=== PATIENT | female | born 1975 | race Hispanic/Latino ===

== ENCOUNTER 2017-06-29 23:36 | Emergency (ER) | payer BC, OTHER, SELFPAY ==
[2017-06-30] MEDS ORDERED: Lorazepam 2 MG/ML VIAL ONE (00:14)
[2017-06-30] MEDS ORDERED: Ondansetron HCl/PF 4 MG/2 ML Vial ONE (00:15)
[2017-06-30 00:55] LABS: #Basophils 0.1 thou/uL (0.0-0.2); #Eosinphils 0.2 thou/uL (0.0-0.7); #Lymphocytes 1.6 thou/uL (1.20-3.40); #Monocytes 0.6 thou/uL (0.11-0.59); #Neutrophils 3.3 thou/uL (1.40-6.50); %Basophils 1.6 % (0.0-1.0); %Eosinophils 2.7 % (0.0-10.0); %Lymphocytes 28.3 % (21.0-51.0); %Monocytes 9.7 % (0.0-10.0); %Neutrophils 57.7 % (42.0-75.0); Hemoglobin 12.2 g/dL (12.0-16.0); Mean Corpuscular HGB CONC 32.9 g/dL (32.0-36.0); Mean Corpuscular Hemoglobin 29.7 pg (27.0-31.0); Mean Corpuscular Volume 90.2 fl (81.0-99.0); Platelet Count 306 thou/uL (130-400); RBC Distribution Width 12.1 % (11.5-14.5); Red Blood Cell (RBC) Count 4.11 mill/uL (4.20-5.40); White Blood Cell (WBC) Count 5.7 thou/uL (4.8-10.8)
[2017-06-30 01:07] LABS: BHCG - Serum Negative (NEGATIVE); Pregs Control Background? CLEAR/WHITE (CLR/WHITE); Pregs Control Bar Appear? YES (CONTROL BAR)
[2017-06-30 01:19] LABS: ALT (SGPT) 20 U/L (8-55); AST (SGOT) 18 U/L (5-34); Albumin 3.7 g/dL (3.5-5.0); Alkaline Phosphatase 104 U/L (40-150); Anion Gap 12 mmol/L (10-20); BUN (Urea Nitrogen) 10 mg/dL (7.0-18.7); Bilirubin, Total 0.2 mg/dL (0.2-1.2); Calc. Creatinine Clearance 0 mL/min (70-130); Calcium 9.4 mg/dL (7.8-10.44); Carbon Dioxide 25 mmol/L (22-29); Chloride 104 mmol/L (98-107); Estimated GFR-MDRD 86; Globulin 2.4 g/dL (2.4-3.5); Glucose 95 mg/dL (70-105); Lipase 11 U/L (8-78); Protein, Total 6.1 g/dL (6.0-8.3); Sodium 137 mmol/L (136-145)
[2017-06-30] MEDS ORDERED: Ketorolac Tromethamine 30 MG/ML VIAL ONE (01:36)
[2017-06-30] MEDS ORDERED: Morphine 2 MG/ML SYRINGE ONE (01:39)
[2017-06-30 02:22] LABS: Bilirubin Negative (Negative); Blood, Urine Negative (Negative); Clarity CLEAR (Clear); Glucose, Urine (Dipstick) Negative (Negative); Leukocyte Small (Negative); Nitrite Negative (Negative); Protein, Urine (Dipstick) Negative (Neg-Trace); Urobilinogen 0.2 mg/dL (0.2-1.0); pH, Urine 6.5 (5.0-9.0)
[2017-06-30 02:24] LABS: Bacteria/HPF 1+ HPF (None Seen); Hyaline Casts/LPF 0-3 HYALINE CAST LPF (0-3 Hyaline); RBC/HPF 0-3 HPF (0-3); Squamous Epithelial 0-3 HPF (0-3)
--- NOTE | 2017-06-30 07:42 | RAD ---
THREE VIEWS LUMBAR SPINE: HISTORY: Increasing back pain. Status post surgery 3 weeks ago. FINDINGS: There is extensive surgical hardware projecting over the lumbosacral junction, bilateral sacroiliac j oints. No perihardware lucency. There is a prosthesis at the lumbosacral junction disk space. Dors al column stimulator is incompletely evaluated. No evidence of fracture. IMPRESSION: Extensive postsurgical change without obvious complication. POS: SHIVANI
== END 2017-06-30 02:50 | disposition home or self-care (01) ==
LOC: ERS 23:36
DX: N39.0 Urinary tract infection, site not specified (principal); F32.9 Major depressive disorder, single episode, unspecified; I10 Essential (primary) hypertension; Z79.899 Other long term (current) drug therapy
CPT/HCPCS: 36415; 72100; 80053; 81003; 81015; 83690; 84703; 85025; 85652; 87086; 96361; 96374; 96375; 96376; J1885; J2060; J2270; J2405

== ENCOUNTER 2017-08-31 16:05 | Observation (INO) | payer BC, MEDICARE ==
[~2017-08-31 16:05] MED LIST: ISOVUE-370 76%-LOCM 1 ML ONE
[2017-08-31 16:35] LABS: #Basophils 0.1 thou/uL (0.0-0.2); #Eosinphils 0.3 thou/uL (0.0-0.7); #Lymphocytes 1.4 thou/uL (1.20-3.40); #Monocytes 0.6 thou/uL (0.11-0.59); #Neutrophils 4.1 thou/uL (1.40-6.50); %Basophils 0.8 % (0.0-1.0); %Eosinophils 3.9 % (0.0-10.0); %Lymphocytes 22.3 % (21.0-51.0); %Monocytes 9.1 % (0.0-10.0); %Neutrophils 63.9 % (42.0-75.0); Hemoglobin 11.5 g/dL (12.0-16.0); Mean Corpuscular HGB CONC 33.9 g/dL (32.0-36.0); Mean Corpuscular Hemoglobin 29.2 pg (27.0-31.0); Mean Corpuscular Volume 85.9 fl (81.0-99.0); Mean Platelet Volume 7.5 fL (7.4-10.4); Platelet Count 333 thou/uL (130-400); Red Blood Cell (RBC) Count 3.94 mill/uL (4.20-5.40); White Blood Cell (WBC) Count 6.4 thou/uL (4.8-10.8)
[2017-08-31 16:58] LABS: ALT (SGPT) 12 U/L (8-55); AST (SGOT) 12 U/L (5-34); Albumin 4.3 g/dL (3.5-5.0); Alkaline Phosphatase 120 U/L (40-150); Anion Gap 14 mmol/L (10-20); BUN (Urea Nitrogen) 20 mg/dL (7.0-18.7); Bilirubin, Total 0.2 mg/dL (0.2-1.2); Calc. Creatinine Clearance 0 mL/min (70-130); Carbon Dioxide 21 mmol/L (22-29); Chloride 108 mmol/L (98-107); Estimated GFR-MDRD 79; Globulin 2.7 g/dL (2.4-3.5); Glucose 76 mg/dL (70-105); Potassium 3.7 mmol/L (3.5-5.1); Sodium 139 mmol/L (136-145)
[2017-08-31 17:02] LABS: CKMB 0.3 ng/mL (0-6.6); Troponin I Less than 0.010 ng/mL (< 0.028)
--- NOTE | 2017-08-31 17:24 | RAD ---
PORTABLE AP CHEST RADIOGRAPH: Date: 08-31-17 History: Chest pain. FINDINGS: Cardiac silhouette and pulmonary vasculature are within normal limits. The lungs are clear. Dorsal co lumn stimulator leads overlie the thoracic spine. Osseous structures appear intact. IMPRESSION: No acute cardiopulmonary process. POS: SUNNY
[2017-08-31 19:11] LABS: BHCG - Serum Negative (NEGATIVE); Pregs Control Background? CLEAR/WHITE (CLR/WHITE); Pregs Control Bar Appear? YES (CONTROL BAR)
--- NOTE | 2017-08-31 21:19 | CT ---
CT ANGIO OF CHEST PERFORMED WITH INTRAVENOUS CONTRAST ENHANCEMENT WITH 3D RECONSTRUCTIONS: 08/31/17 HISTORY: Chest pain and shortness of breath. History of back surgery in July. The lungs are clear of any infiltrative process. No pleural effusions are identified. Minimal nonspec ific ground glass opacity is seen through the lung arana. The thoracic aorta is normal in caliber without evidence for dissection. There is pulmonary artery op acification, there is no CT evidence for pulmonary embolus. Small hiatal hernia is present. The visua lized liver parenchyma shows no focal abnormalities. Dorsal column stimulator is incidentally noted. IMPRESSION: No CT evidence for pulmonary embolus. Minimal ground glass opacity of the lung arana which is nonspe cific and can have multiple causes. No signs of pleural effusions or any acute infiltrative process. POS: SUNNYH
[2017-08-31 23:30] LABS: Troponin I Less than 0.010 ng/mL (< 0.028)
[2017-08-31] MEDS ORDERED: Ondansetron HCl/PF 4 MG/2 ML Vial IVP PRN (23:56)
[2017-08-31] MEDS ORDERED: Ondansetron ODT 4 MG TAB SL PRN (23:56)
[2017-09-01 00:01] VITALS: BMI 32.5
[2017-09-01] MEDS ORDERED: Pregabalin 75 MG CAP PO SCH (00:45)
[2017-09-01] MEDS ORDERED: DULoxetine 60 MG CAP PO SCH (00:45)
[2017-09-01] MEDS: Sodium Chloride 0.9% 1,000 ML IV SCH ×3 (00:59→21:02)
[2017-09-01 02:33] LABS: Troponin I Less than 0.010 ng/mL (< 0.028)
[2017-09-01] MEDS ORDERED: Acetaminophen 325 MG TAB PO PRN (03:11)
[2017-09-01] MEDS ORDERED: Ondansetron HCl/PF 4 MG/2 ML Vial IVP PRN (03:11)
[2017-09-01] MEDS ORDERED: Nitroglycerin 0.4 MG TAB (25 Tab Bottle) PO PRN (03:11)
[2017-09-01] MEDS ORDERED: Senokot 8.6 MG TAB PO PRN (03:11)
[2017-09-01] MEDS ORDERED: Calcium Carbonate 500 MG ChewTAB PO PRN (03:11)
--- NOTE | 2017-09-01 03:34 | HP ---
DATE OF ADMISSION: 09/01/2017 Patient was seen and examined on 09/01/2017. CHIEF COMPLAINT: Chest discomfort. HISTORY OF PRESENT ILLNESS: Patient is a 42-year-old female followed by Dr. Sher with chronic low b ack pain with recent back surgery presented to the emergency room with chest discomfort that started approximately 2 days ago while she was out of town. She also noticed that her pulse rate was high. She has been having intermittent shortness of breath along with diaphoresis. She has a very strong h istory of premature coronary artery disease. The chest discomfort was dull in nature, 6/10 precordia l without any relieving symptoms. The pain gets worse on exertion. In the emergency room, initial vital signs showed temperature 97.8, respirations 20, pulse of 83, blo od pressure of 139/97 with O2 saturation 100% on room air. EKG showed sinus rhythm without significa nt ST-T wave changes. She received a dose of aspirin in the emergency room. PAST MEDICAL HISTORY: Chronic low back pain with recent back surgery, depression, hypertension. PAST SURGICAL HISTORY: 1. Spinal cord stimulator. 2. Several back surgeries. ALLERGIES: Patient is allergic to HYDROCODONE. CURRENT HOME MEDICATIONS: Patient is on Xanax, Cymbalta, fentanyl patch, Robaxin, metoprolol succina te 100 mg daily, oxycodone, Lyrica, and tizanidine. SOCIAL HISTORY: Patient currently lives at home with her family. No smoking, alcohol, or drug use. FAMILY HISTORY: Positive for premature coronary artery disease. REVIEW OF SYSTEMS: The following complete review of systems was negative, unless otherwise mentioned in the HPI or below: Constitutional: Weight loss or gain, ability to conduct usual activities. Sk in: Rash, itching. Eyes: Double vision, pain. ENT/Mouth: Nose bleeding, neck stiffness, pain, te nderness. Cardiovascular: Palpitations, dyspnea on exertion, orthopnea. Respiratory: Shortness of breath, wheezing, cough, hemoptysis, fever, or night sweats. Gastrointestinal: Poor appetite, abdo yovani pain, heartburn, nausea, vomiting, constipation, or diarrhea. Genitourinary: Urgency, frequen cy, dysuria, nocturia. Musculoskeletal: Pain, swelling. Neurologic/Psychiatric: Anxiety, depressi on. Allergy/Immunologic: Skin rash, bleeding tendency. PHYSICAL EXAMINATION: VITAL SIGNS: As discussed above. GENERAL: A 42-year-old female in no apparent distress. Chest discomfort has improved. HEENT: Atraumatic, normocephalic. Sclerae anicteric. Moist mucous membranes. No oral lesion. NECK: Supple, no JVD appreciated. No carotid bruit. LUNGS: Clear to auscultation bilaterally. No wheezing, rales, or rhonchi. HEART: S1, S2 present. Regular rate and rhythm. No murmur, rubs, or gallops appreciated. ABDOMEN: Soft, nontender, bowel sounds present. No rebound, guarding, no costovertebral angle tende rness. EXTREMITIES: No edema or calf tenderness. NEUROLOGIC: Grossly nonfocal, moves all four extremities. PSYCHIATRY: Alert, awake, oriented x3. SKIN: Warm and dry. LYMPH NODES: No palpable lymph nodes in the neck. PERIPHERAL VASCULAR: Radial pulses palpable bilaterally. MUSCULOSKELETAL: No joint swelling or tenderness. LABORATORY DATA AND X-RAY FINDINGS: Troponins were negative. test negative. BUN 20, crea tinine 0.8. D-dimer was 2.2. CBC showed WBC 6.4 with hemoglobin 11.5. EKG by my review showed norm al sinus rhythm without significant ST-T wave changes. Chest x-ray by my review was negative for inf iltrate or edema. CT angiogram of the chest was negative for pulmonary embolism. IMPRESSION AND PLAN: 1. Chest discomfort with shortness of breath in a 42-year-old female with strong family history of h eart disease. Patient will be monitored on telemetry. We will get serial troponins. Due to interme diate probability for heart disease, we will get a stress test in a.m. Lifestyle modification was em phasized. She received a dose of aspirin in the emergency room. 2. Obesity with a BMI 32.5. 3. Chronic low back pain with recent back surgery. 4. Depression without any suicidal ideation. 5. Chronic pain syndrome on chronic narcotics. 6. Anxiety, depression without any suicidal ideation. We will continue her home medication regimen. 7. Hypertension. We will continue metoprolol with holding parameters. 8. Elevated D-dimer with negative CT angiogram of the chest. Patient will be started on IV fluids. 9. Chronic kidney disease, stage 2. Plan of care was discussed with the patient in detail, she stated understanding.
[2017-09-01 07:22] LABS: Bilirubin Small (Negative); Blood, Urine Negative (Negative); Clarity CLEAR (Clear); Glucose, Urine (Dipstick) Negative (Negative); Leukocyte Negative (Negative); Nitrite Negative (Negative); Protein, Urine (Dipstick) Negative (Neg-Trace); Specific Gravity, Urine 1.022 (1.002-1.036); Urobilinogen 0.2 mg/dL (0.2-1.0)
[2017-09-01] MEDS: Methocarbamol 500 MG TAB PO SCH ×2 (08:14→15:37)
[2017-09-01] MEDS: DULoxetine 60 MG CAP PO SCH ×2 (08:15→21:00)
[2017-09-01] MEDS: Pregabalin 75 MG CAP PO SCH ×2 (08:15→21:00)
[2017-09-01] MEDS: Aspirin 325 MG TAB PO SCH (08:17)
[2017-09-01] MEDS: oxyCODONE/Acetaminophen 5 mg/325 mg Tablet PO PRN ×4 (08:17→19:35)
[2017-09-01] MEDS ORDERED: tiZANidine HCl 4 MG TAB PO SCH ×2 (09:00→21:00)
[2017-09-01] MEDS: ALPRAZolam 1 MG TAB PO PRN (16:22)
[2017-09-01] MEDS ORDERED: ADENOSINE 60 MG/20 ML VIAL ONE (16:30)
[2017-09-02] MEDS: oxyCODONE/Acetaminophen 5 mg/325 mg Tablet PO PRN ×2 (03:10→07:37)
[2017-09-02] MEDS: Methocarbamol 500 MG TAB PO SCH (07:36)
[2017-09-02] MEDS: ALPRAZolam 1 MG TAB PO PRN (07:37)
[2017-09-02] MEDS ORDERED: Morphine 4 MG/ML VIAL SLOW IVP SCH (10:15)
[2017-09-02] MEDS: DULoxetine 60 MG CAP PO SCH (10:20)
[2017-09-02] MEDS: Aspirin 325 MG TAB PO SCH (10:20)
[2017-09-02] MEDS: Pregabalin 75 MG CAP PO SCH (10:20)
--- NOTE | 2017-09-02 10:33 | PDOC.PN ---
- Subjective Encounter Start Date: 09/02/17 Encounter Start Time: 08:15 Subjective: no sob or palp - Objective Resuscitation Status: Resuscitation Status FULL:Full Resuscitation MAR Reviewed: Yes Vital Signs & Weight: Vital Signs (12 hours) Temp Pulse Resp BP BP Pulse Ox 09/02/17 07:56 98.3 F 66 16 09/02/17 07:29 97.8 F 85 16 139/92 H 100 09/02/17 03:02 98.3 F 66 16 102/57 L 93 L 09/01/17 23:35 97.3 F L 70 15 83/48 L 94 L Weight Weight 195 lb 9.6 oz I&O: 09/01/17 09/02/17 09/03/17 06:59 06:59 06:59 Intake Total 1021 400 240 Output Total 600 900 750 Balance 421 500 -510 Result Diagrams: 08/31/17 16:25 08/31/17 16:25 Phys Exam - Physical Examination HEENT: PERRLA, moist MMs Neck: no JVD, supple Respiratory: no wheezing, no rales Cardiovascular: RRR, no significant murmur Gastrointestinal: soft, non-tender, positive bowel sounds Musculoskeletal: no edema, pulses present Neurological: non-focal, moves all 4 limbs Psychiatric: normal affect, A&O x 3 Dx/Plan (1) Chest pain Code(s): R07.9 - CHEST PAIN, UNSPECIFIED Status: Acute (2) HTN (hypertension) Code(s): I10 - ESSENTIAL (PRIMARY) HYPERTENSION Status: Chronic Qualifiers: Hypertension type: essential hypertension Qualified Code(s): I10 - Essential (primary) hypertension (3) Chronic back pain Code(s): M54.9 - DORSALGIA, UNSPECIFIED; G89.29 - OTHER CHRONIC PAIN Status: Chronic Qualifiers: Back pain location: low back pain (4) Anxiety Code(s): F41.9 - ANXIETY DISORDER, UNSPECIFIED Status: Chronic (5) Obesity (BMI 30.0-34.9) Code(s): E66.9 - OBESITY, UNSPECIFIED Status: Chronic - Plan hemostable -: await stress test results -: prelim cultures both blood and urine are -ve so far -: pt had 2 back to back surgeries for lumbar spine area, hence the cultures w -: -ere taken. D/w in room * . Review of Systems - Medications/Allergies Allergies/Adverse Reactions: Allergies Allergy/AdvReac Type Severity Reaction Status Date / Time hydrocodone bitartrate Allergy Hives Verified 09/01/17 00:03 [From Vicodin] Medications: Current Medications Acetaminophen (Tylenol) 650 mg PO Q4H PRN PRN Reason: Headache/Fever or Pain Alprazolam (Xanax) 1 mg PO TID PRN PRN Reason: Anxiety Last Admin: 09/02/17 07:37 Dose: 1 mg Aspirin (Aspirin) 325 mg PO DAILY [facility] Last Admin: 09/02/17 10:20 Dose: 325 mg Calcium Carbonate (Tums) 1,000 mg PO Q4H PRN PRN Reason: Heartburn or Indigestion Duloxetine HCl (Cymbalta) 60 mg PO BID [facility] Last Admin: 09/02/17 10:20 Dose: 60 mg Fentanyl (Duragesic) 25 mcg TD Q3D [facility] Last Admin: 09/01/17 15:35 Dose: 25 mcg Methocarbamol (Robaxin) 750 mg PO 0800,1700 [facility] Last Admin: 09/02/17 07:36 Dose: 750 mg Morphine Sulfate (Morphine) 2 mg SLOW IVP NOW [facility] Stop: 09/02/17 12:00 Last Admin: 09/02/17 10:19 Dose: 2 mg Nitroglycerin (Nitrostat) 0.4 mg PO Q5MIN PRN PRN Reason: Chest Pain Ondansetron HCl (Zofran) 4 mg IVP Q6H PRN PRN Reason: Nausea/Vomiting Oxycodone/Acetaminophen (Percocet 5/325) 1 tab PO Q4H PRN PRN Reason: Severe Pain (7-10) Last Admin: 09/02/17 07:37 Dose: 1 tab Pregabalin (Lyrica) 300 mg PO BID [facility] Last Admin: 09/02/17 10:20 Dose: 300 mg Senna (Senokot) 2 tab PO HSPRN PRN PRN Reason: Constipation Sodium Chloride (Flush - Normal Saline) 10 ml IVF Q12HR [facility] Last Admin: 09/02/17 07:38 Dose: 10 ml Sodium Chloride (Flush - Normal Saline) 10 ml IVF PRN PRN PRN Reason: Saline Flush Last Admin: 09/01/17 21:02 Dose: 10 ml Tizanidine HCl (Zanaflex) 8 mg PO 2099 [facility] Last Admin: 09/01/17 21:00 Dose: 8 mg
--- NOTE | 2017-09-02 12:10 | NM ---
NUCLEAR MEDICINE CARDIAC PERFUSION EXAMINATION WITH EJECTION FRACTION: COMPARISON: None. HISTORY: A 42-year-old female with chest pain. TECHNIQUE: A 2-day nuclear medicine cardiac perfusion examination was performed. Rest images were obtained usin g 28.9 mCi of Technetium 99m sestamibi. Stress images were obtained using 33 mCi of Technetium 99m s estamibi and adenosine. FINDINGS: There is a small-sized, mild intensity fixed perfusion defect at the apex which may be secondary to s oft tissue attenuation from the patient's large body habitus. No reversible perfusion defects are se en. Gated images show normal wall motion with an ejection fraction of 68%. EDV is 77 mL. LHR is 0.5. TID is 1.2. IMPRESSION: No evidence of ischemia. POS: SHIVANI
[2017-09-02 12:16] VITALS: BP 112/67; TEMP 98.2
--- NOTE | 2017-09-03 14:18 | DIS ---
DATE OF ADMISSION: 08/31/2017 DATE OF DISCHARGE: 09/02/2017 DISCHARGE DISPOSITION: To home. PRIMARY DISCHARGE DIAGNOSIS: Chest pain, which is noncardiac. SECONDARY DISCHARGE DIAGNOSES: Chronic low back pain with recent spine surgery done x2, hypertension , anxiety, obesity. PROCEDURES DONE DURING HOSPITALIZATION: CT angio chest done showed no evidence of PE. A 2D nuclear stress test done showed no evidence of reversible ischemia. Ejection fraction was 68%, no reversible perfusion defects were seen on the stress test. Blood cultures x2 no growth. Urine culture no grow th. White count of 6, H&H 11 and 33, platelet count 333 with 63% neutrophils. Serum bicarbonate is 21, BUN 20, creatinine 0.8. Troponin x3 was negative. CK-MB 0.3. Serum test negative. DISCHARGE MEDICATIONS: Xanax p.r.n., duloxetine 60 mg twice daily, fentanyl 25 mcg q.72 hourly trans dermal patch, Robaxin 750 mg p.o. twice daily, Toprol extended release 100 mg daily, oxycodone 10/325 mg q.4 hourly p.r.n., Lyrica 300 mg twice daily, tizanidine 8 mg at bedtime. ALLERGIES: HYDROCODONE. DISCHARGE PLAN: The patient to follow up with her pain specialist and her spine surgeon as before an d primary care physician in 1 week. BRIEF COURSE DURING HOSPITALIZATION: The patient initially got admitted on the with complaints o f chest pain. Also, D-dimer was elevated. She has had 2 back to back surgeries, the second one for repositioning and removal of some hardware in the lumbar spine. In view of this, the patient was jonas [place] under observation on telemetry. She has had 3 sets of troponin done, which were negative. Nucle ar stress test was a 2-day stress test in view of patient's body habitus. This has not revealed any reversible perfusion defects. She remained hemodynamically stable. In view of recent surgery, blood and urine cultures were obtained as well, which have been negative. CT angio showed no evidence of PE. The patient needs to follow up with her primary care physician in 1 week. She is also advised t o check blood pressure and pulse twice daily for a period of 10 days and record to follow up with her primary care physician. Please see a [id number] documentation for the day of discharge on [facility]
== END 2017-09-02 13:41 | disposition home or self-care (01) ==
LOC: ERS 16:05 → 2SW 23:55
PROVIDERS: ADMIT Internal Medicine; ATTEND Internal Medicine
DX: R07.89 Other chest pain (principal); I12.9 Hypertensive chronic kidney disease with stage 1 through stage 4 chronic kidney disease, or unspecified chronic kidney disease; N18.2 Chronic kidney disease, stage 2 (mild); G89.4 Chronic pain syndrome; F41.8 Other specified anxiety disorders; E66.9 Obesity, unspecified; Z68.32 Body mass index [BMI] 32.0-32.9, adult; Z88.5 Allergy status to narcotic agent; Z79.899 Other long term (current) drug therapy; Z98.890 Other specified postprocedural states
CPT/HCPCS: 36415; 71045; 71275; 78452; 80053; 81003; 82553; 84484; 84703; 85025; 85379; 87040; 87086; 93005; 93017; 96361; 96374; A4216; A9500; G0378; J0153; J2270

== ENCOUNTER 2018-01-24 14:55 | Emergency (ER) | payer BC, MEDICARE ==
[2018-01-24 15:39] LABS: #Basophils 0.1 thou/uL (0.0-0.2); #Eosinphils 0.1 thou/uL (0.0-0.7); #Lymphocytes 1.4 thou/uL (1.20-3.40); #Monocytes 0.3 thou/uL (0.11-0.59); #Neutrophils 7.2 thou/uL (1.40-6.50); %Basophils 0.7 % (0.0-1.0); %Eosinophils 0.6 % (0.0-10.0); %Lymphocytes 15.5 % (21.0-51.0); %Monocytes 3.5 % (0.0-10.0); %Neutrophils 79.7 % (42.0-75.0); Hemoglobin 14.1 g/dL (12.0-16.0); Mean Corpuscular HGB CONC 33.2 g/dL (32.0-36.0); Mean Corpuscular Hemoglobin 27.1 pg (27.0-31.0); Mean Corpuscular Volume 81.5 fL (78.0-98.0); Mean Platelet Volume 7.9 fL (7.4-10.4); Platelet Count 365 thou/uL (130-400); RBC Distribution Width 15.4 % (11.5-14.5); Red Blood Cell (RBC) Count 5.21 mill/uL (4.20-5.40); White Blood Cell (WBC) Count 9.1 thou/uL (4.8-10.8)
[2018-01-24 15:59] LABS: ALT (SGPT) 18 U/L (8-55); AST (SGOT) 17 U/L (5-34); Acetaminophen Less than 6.0 mcg/mL (10.0-30.0); Albumin 5.2 g/dL (3.5-5.0); Alcohol Less than 10 mg/dL (Less than 10); Alkaline Phosphatase 122 U/L (40-150); Anion Gap 14 mmol/L (10-20); BUN (Urea Nitrogen) 16 mg/dL (7.0-18.7); Bilirubin, Total 0.3 mg/dL (0.2-1.2); CK (CPK) 52 U/L (29-168); Calc. Creatinine Clearance 0 mL/min (70-130); Calcium 9.9 mg/dL (7.8-10.44); Carbon Dioxide 22 mmol/L (22-29); Chloride 102 mmol/L (98-107); Estimated GFR-MDRD 75; Globulin 3.4 g/dL (2.4-3.5); Glucose 98 mg/dL (70-105); Potassium 3.4 mmol/L (3.5-5.1); Protein, Total 8.6 g/dL (6.0-8.3); Salicylate Less than 8.0 mg/dL (15.0-30.0); Sodium 135 mmol/L (136-145)
[2018-01-24 17:33] LABS: Pregnancy Test - Urine (BHCG) Negative (Negative); Pregu Control Background? CLEAR/WHITE (CLR/WHITE); Pregu Control Bar Appear? YES (CONTROL BAR); Specific Gravity 1.013 (1.002-1.036)
[2018-01-24] MEDS ORDERED: cloNIDine 0.1 MG TAB ONE (17:56)
[2018-01-24 18:15] LABS: Amphetamine Not Detected (NotDetected); Barbiturates Screen Not Detected (NotDetected); Benzodiazepine Screen Detected (NotDetected); Cocaine Metabolite Screen Not Detected (NotDetected); Medtox Control Line Valid? VALID (VALID); Medtox Reader # READER 1; Methadone Not Detected (NotDetected); Methamphetamine Not Detected (NotDetected); Opiate Screen Not Detected (NotDetected); Oxycodone Screen Not Detected (NotDetected); Phencyclidine (PCP) Not Detected (NotDetected); THC/Cannabinoid Screen Not Detected (NotDetected); Tricyclic Screen Not Detected (NotDetected)
[2018-01-24] MEDS ORDERED: Morphine 4 MG/ML VIAL ONE ×2 (19:09→23:55)
== END 2018-01-25 00:14 | disposition home or self-care (01) ==
LOC: ERS 14:55
DX: F32.9 Major depressive disorder, single episode, unspecified (principal); G89.29 Other chronic pain; M54.9 Dorsalgia, unspecified; I10 Essential (primary) hypertension; Z79.899 Other long term (current) drug therapy
CPT/HCPCS: 36415; 80053; 80306; 80307; 81025; 82550; 84443; 85025; 96372; J2270

== ENCOUNTER → 2018-02-04 | Day surgery (SDC) | payer BC, MEDICARE ==
[2018-02-03 14:12] VITALS: BMI 28.6
--- NOTE | 2018-02-04 11:47 | RAD ---
LUMBAR SPINE MYELOGRAM: INDICATION: Lumbar radiculopathy. EXPOSURE DATA: 0.1 minutes of intermittent fluoroscopy. PROCEDURE: After informed consent had been obtained, the patient was escorted to the interventional suite and pl aced on the procedural table. [employer] imaging was performed. The patient was placed into a prone posi tion. Skin on the low back was then prepped and draped in the standard sterile fashion and topical a nd regional soft tissue anesthesia was achieved with 1% lidocaine and sodium bicarbonate. L2-L3 rig ht interlaminar approach was selected, and a 22 gauge needle was uneventfully advanced into the theca l sac with clear color CSF. Subsequently, 10 mL Isovue-M 300 was instilled into the thecal sac under real time fluoroscopy. Appropriate opacification of thecal sac demonstrated with imaging stored for confirmation. The needle was then removed from the patient. The patient tolerated the procedure we ll and was then transferred to CT to undergo subsequent myelogram. Reference separate report for ful l details. IMPRESSION: Technically successful lumbar myelogram as detailed above. POS: [facility]
--- NOTE | 2018-02-04 12:36 | CT ---
CT LUMBAR SPINE WITH CONTRAST CT LUMBAR MYELOGRAM WITH INTRATHECAL CONTRAST: COMPARISON: Reference is made to 07/31/15 myelogram. INDICATION: Low back pain, lumbar radiculopathy. Multiple prior lumbar spine surgeries. FINDINGS: Numbering system as from prior lumbar spine myelogram will be utilized, which assumes a sacralized L5 segment and 4 [id number] lumbar-type segments. There has been interval placement of a intradiskal space device at L4-5 with L4 and L5 vertebral body screws emanating from the intradiskal device. Redmonstration of bilateral pedicle screws at L4 and 5 with bilateral vertical interconnecting rods. The right L4 pedicle screw demonstrates a more cepha lad angulated course with slight separation of the screw from its base, although no significant perih ardware lucency. Conus medullaris is normal in morphology terminating at the L1 level. There is a spinal stimulator d evice with leads entering dorsal thecal sac at the T11-12 level. At the L1-2 and L2-3 levels, no significant central canal or neural foraminal stenosis. At L3-4, there is minimal narrowing of the central canal due to disk-osteophyte without high-grade fo raminal stenosis. L4-5: Prominent bilateral postoperative osseous hypertrophy which produces mild transverse narrowing of the thecal sac. No significant AP diameter narrowing of the thecal sac at this operative level. There is osseous compromise of each neural foramen, mild in degree. There is a hazy density of the left neural foramen of L4-5 which could relate to a component of epidural fibrosis, although this is limited. Incidental note of intrauterine device as well as small calcifications in the bilateral adnexal regio ns. IMPRESSION: 1. Postoperative lumbar spine with interval hardware placement as discussed above. There is cephala d angulation of the right L4 pedicle screw with slight separation from its base, a new finding from p rior myelogram Correlate clinically in this regard. 2. Degenerative change of the lumbar spine predominantly isolated to the operative site and the leve l just cephalad as discussed above. POS: SHIVANI
[2018-02-04 15:25] VITALS: BP 125/69; TEMP 96.8
== END | disposition home or self-care (01) ==
LOC: RAD 11:12
PROVIDERS: ATTEND Nurse Practitioner Family
PROC: B01B1ZZ Fluoroscopy of Spinal Cord using Low Osmolar Contrast (ICD-10-PCS; principal; 2018-02-04)
DX: M54.16 Radiculopathy, lumbar region (principal); Z79.1 Long term (current) use of non-steroidal anti-inflammatories (NSAID); Z79.899 Other long term (current) drug therapy; Z88.5 Allergy status to narcotic agent; Z98.1 Arthrodesis status; Z98.890 Other specified postprocedural states
CPT/HCPCS: 62304; 72132

== ENCOUNTER 2018-08-16 00:14 | Emergency (ER) | payer OTHER, MEDICARE | END 2018-08-16 01:17 | disposition left against medical advice (07) | LOC: ERS 00:14 | DX: Z53.21 Procedure and treatment not carried out due to patient leaving prior to being seen by health care provider (principal) ==

== ENCOUNTER → 2018-08-23 | Day surgery (SDC) | payer OTHER, MEDICARE ==
[2018-08-22 15:48] VITALS: BMI 28.3
[~2018-08-23] MED LIST changes: +Bupivacaine HCl 0.5%/Epinephrine 1:200,000/PF 30 ml Vial ONE; +CEFAZOLIN 1 GM VIAL ONE; +Fentanyl 100 MCG/2 ML VIAL ONE; -ISOVUE-370 76%-LOCM 1 ML ONE; +Labetalol HCl 100 MG/20 ML VIAL ONE; +Lorazepam 1 MG TAB PO SCH; +Midazolam HCl 2 mg/2 ml Vial ONE; +PROPOFOL 20 ML ONE; +PROPOFOL 200 MG/20 ML VIAL ONE; +Propofol 500 MG/50 ML VIAL ONE; +Sodium Chloride 0.9% 10 ML ONE; +Sodium Chloride 0.9% 100 ML ONE; +cloNIDine 0.1 MG TAB ONE
--- NOTE | 2018-08-23 16:04 | RAD ---
Single fluoroscopic spot image of the thoracic spine INDICATION: Pain stimulator lead placement IMPRESSION: Single submitted image demonstrates a dorsal column stimulator projecting up to the super ior aspect of the reported T7 vertebral level. Visualized aspects of the stimulator leads appear intact. Osseous structures reveal no acute abnormality. IMPRESSION: Dorsal column stimulator leads projecting up to the reported T7 vertebral level.
--- NOTE | 2018-08-24 09:44 | OP ---
DATE OF PROCEDURE: 08/23/2018 PREOPERATIVE DIAGNOSES: 1. Failed spinal cord stimulation system. 2. Complex regional pain syndrome, bilateral lower extremity. 3. Chronic lumbar radiculopathy. 4. Postlaminectomy syndrome. POSTOPERATIVE DIAGNOSES: 1. Failed spinal cord stimulation system. 2. Complex regional pain syndrome, bilateral lower extremity. 3. Chronic lumbar radiculopathy. 4. Postlaminectomy syndrome. PROCEDURES PERFORMED: 1. Explant of a [employer] spinal cord stimulation electrode array, right side. 2. Explant of spinal cord stimulation electrode array, left side. 3. Explant of [employer] internal pulse generator. 4. Implantation of [employer] spinal cord stimulation electrode percutaneous, right side. 5. Implantation of a left spinal cord stimulation [employer] percutaneous, left side. 6. Implantation of [employer] non-rechargeable internal pulse generator. 7. Intraoperative programming less than 1 hour. 8. Fluoroscopic guidance. ANESTHESIA: TIVA. COMPLICATIONS: None. BLOOD LOSS: Less than 10 mL. SUMMARY: Risks and benefits were discussed. Informed consent was obtained. The patient's history is well outlined in the preoperative H and P. She was taken to the OR, prepped and draped in standard fashion. DuraPrep was used for prep. DuraPrep was let dry. Fluoroscopic guidance was used to identify the previously implanted [employer] failed spinal cord stimulation system. 1% lidocaine with 0.5% Marcaine with epinephrine was used for skin and subcutaneous anesthesia. Using blunt dissection and Metzenbaum and bipolar for hemostasis, dissection was carried down from the posterior incision to the lead anchors and exposing them. This stay sutures were ligated and removed. The anchors were then removed, and each lead right and left were removed correspondingly from the epidural space. Attention was then turned to the IPG left buttock. After adequate location anesthesia blunt dissection down to the IPG, the IPG was externalized. Leads were cut for the dissection to ligate the scar tissue around the leads completing the explant of the entire lead and extension system. The IPG was also explanted. The system was discarded. Next, under fluoroscopic guidance, the [employer] percutaneous lead was advanced into the T11-T12 interspace using the supplied Tuohy needle and [id number] technique in one pass. No paresthesia, CSF, or heme. The right lead was advanced under fluoroscopic guidance such that the cephalad electrode was at the superior endplate of T7. The left electrode was then placed in an identical fashion using a left paramedian approach and the supplied Tuohy needle in one pass. No paresthesia, CSF, or heme. The lead array was parallel to the first again with the cephalad electrode at the superior endplate of T7. The patient was then allowed to awaken. Intraoperative programming achieved appropriate right leg stimulation from the back to the foot and left from the back to the foot. The needles were then removed intact. Stylets were removed intact. Using the supplied [employer] anchors, each lead was anchored to the underlying fascia using two 2-0 silk sutures. Tunnelling was accomplished between incision passing the lead from the posterior incision to the IPG pocket. IPG pocket was then widened slightly to have the [employer] internal pulse generator, which was placed in the pocket. Leads were connected to the pulse generator and all set screws were tightened using the appropriate ratcheted screwdriver. IPG was placed in the pocket riding side out. Prior to closure, the system was checked. All impedances were low. All contacts were functioning. Prior to closure, all counts were correct x2. Closure was accomplished in layers with interrupted Vicryl. The skin was closed with a running subcuticular 3-0 Rapide. Dermabond was placed on the skin and let to dry, dressing with 4x4 and MediPort tape. No complications. Job ID: [id number]
== END ==
LOC: SDC 11:55
PROVIDERS: ATTEND Anesthesiology Pain Medicine
PROC: 00HU3MZ Insertion of Neurostimulator Lead into Spinal Canal, Percutaneous Approach (ICD-10-PCS; principal; 2018-08-23)
PROC: 0JH70BZ Insertion of Single Array Stimulator Generator into Back Subcutaneous Tissue and Fascia, Open Approach (ICD-10-PCS; principal; 2018-08-23)
DX: T85.193A Other mechanical complication of implanted electronic neurostimulator, generator, initial encounter (principal); G90.521 Complex regional pain syndrome I of right lower limb; G90.522 Complex regional pain syndrome I of left lower limb; G89.4 Chronic pain syndrome; M54.16 Radiculopathy, lumbar region; M96.1 Postlaminectomy syndrome, not elsewhere classified
CPT/HCPCS: 72070; 76000; C1767; C1778; J0670; J0690; J2250; J2704; J3010; J3490

== ENCOUNTER 2022-06-15 13:27 | Outpatient (CLI) | payer BC, MEDICARE ==
[2022-06-15 15:34] LABS: Hemoglobin 14.1 g/dL (12.0-15.5); Mean Corpuscular HGB CONC 33.3 g/dL (32.0-36.0); Mean Corpuscular Hemoglobin 29.7 pg (27.0-33.0); Mean Corpuscular Volume 89.5 fl (81.6-98.3); Mean Platelet Volume 10.9 fl (7.4-10.4); Platelet Count 315 10x3/uL (150-450); RBC Distribution Width 12.2 % (11.5-14.5); Red Blood Cell (RBC) Count 4.74 10x6/uL (3.90-5.03); White Blood Cell (WBC) Count 10.1 10x3/uL (3.5-10.5)
[2022-06-15 15:38] LABS: PTT 24.1 sec (22.0-33.0); Prothrombin Time 10.4 sec (9.5-12.1)
[2022-06-15 15:41] LABS: Anion Gap 14 mmol/L (10-20); BUN (Urea Nitrogen) 14 mg/dL (7.0-18.7); Calc. Creatinine Clearance 0 mL/min (70-130); Calcium 9.4 mg/dL (7.8-10.44); Carbon Dioxide 23 mmol/L (22-29); Chloride 102 mmol/L (98-107); Estimated GFR 91; Glucose 75 mg/dL (70-105); Potassium 3.9 mmol/L (3.5-5.1); Sodium 135 mmol/L (136-145)
== END 2022-06-15 13:28 | disposition home or self-care (01) ==
LOC: LABBT 13:27
PROVIDERS: ATTEND Surgery
DX: Z01.818 Encounter for other preprocedural examination (principal); M50.10 Cervical disc disorder with radiculopathy, unspecified cervical region; M48.02 Spinal stenosis, cervical region
CPT/HCPCS: 80048; 85027; 85610; 85730; 93005; 93010

== ENCOUNTER 2022-06-17 10:25 | Outpatient (CLI) | payer BC, MEDICARE | END 2022-06-17 10:26 | disposition home or self-care (01) | LOC: BICRAD 10:25 | PROVIDERS: ATTEND Nurse Practitioner Family | DX: M25.551 Pain in right hip (principal) ==

== ENCOUNTER 2022-06-18 08:31 | Observation (INO) | payer BC, MEDICARE ==
[2022-06-18] MEDS ORDERED: Sodium Chloride 0.9% 100 ML ONE ×2 (08:43→15:49)
[2022-06-18] MEDS ORDERED: CEFAZOLIN 2 GM VIAL ONE ×2 (08:43→15:48)
[2022-06-18] MEDS ORDERED: Thrombin 5000 UNITS/5 ML VIAL ONE (09:02)
[2022-06-18] MEDS ORDERED: fentaNYL PF 100 MCG/2 ML SYRINGE ONE (09:43)
[2022-06-18] MEDS ORDERED: HYDROmorphone 0.5 MG/0.5 ML SYRINGE ONE ×2 (09:43→12:21)
[2022-06-18 09:48] LABS: SARS-CoV-2 NAA Rapid Test Not Detected (NotDetected)
[2022-06-18] MEDS ORDERED: Midazolam HCl 2 mg/2 ml Vial ONE (10:04)
[2022-06-18] MEDS ORDERED: Lidocaine 1% PF 5 ML VIAL ONE (10:20)
[2022-06-18] MEDS ORDERED: NEOSTIGMINE 3 MG/3 ML SYR 3 MG/3 ML SYRINGE ONE (10:20)
[2022-06-18] MEDS ORDERED: Glycopyrrolate 0.2 MG/ML 5 ML SYRINGE ONE (10:20)
[2022-06-18] MEDS ORDERED: ePHEDrine 50 MG/ML VIAL ONE (10:20)
[2022-06-18] MEDS ORDERED: Ondansetron PF 4 MG/2 ML Vial ONE (10:20)
[2022-06-18] MEDS ORDERED: Metoclopramide HCl 10 MG/2 ML VIAL ONE (10:20)
[2022-06-18] MEDS ORDERED: Dexamethasone 20 MG/5 ML VIAL ONE (10:20)
[2022-06-18] MEDS ORDERED: PHENYLEPHRINE-NS 100 MCG/ML 10 ML SYRINGE ONE (10:20)
[2022-06-18] MEDS ORDERED: PROPOFOL 200 MG/20 ML VIAL ONE (10:20)
[2022-06-18] MEDS ORDERED: Rocuronium Bromide 10 MG/ML (10ML VIAL) ONE (10:20)
[2022-06-18] MEDS ORDERED: Acetaminophen 325 MG TAB PO PRN (12:15)
[2022-06-18] MEDS ORDERED: Ketorolac Tromethamine 30 MG/ML VIAL IVP PRN (12:15)
[2022-06-18] MEDS ORDERED: diphenhydrAMINE 25 MG CAP PO PRN (12:15)
[2022-06-18] MEDS ORDERED: Ondansetron PF 4 MG/2 ML Vial IVP PRN (12:15)
[2022-06-18] MEDS ORDERED: Morphine 2 MG/ML VIAL SLOW IVP PRN (12:15)
[2022-06-18] MEDS ORDERED: traMADol HCl 50 MG TAB PO PRN (12:15)
[2022-06-18] MEDS ORDERED: Acetaminophen/Codeine 30-300mg Tablet PO PRN (12:15)
[2022-06-18] MEDS ORDERED: hydrALAZINE 20 MG/ML VIAL SLOW IVP PRN (12:18)
[2022-06-18] MEDS ORDERED: Chloraseptic Spray 180 ml Bottle PO PRN (12:18)
[2022-06-18] MEDS ORDERED: Cepastat Lozenges 1 LOZ PO PRN (12:18)
[2022-06-18] MEDS ORDERED: Ondansetron HCl/PF 4 MG/2 ML Vial IVP PRN (12:19)
[2022-06-18] MEDS ORDERED: Meperidine HCl/PF 25 MG/ML VIAL SLOW IVP PRN (12:19)
[2022-06-18] MEDS ORDERED: Promethazine HCl 25 MG/ML VIAL IM PRN (12:19)
[2022-06-18] MEDS ORDERED: HYDROmorphone 2 MG/ML VIAL SLOW IVP PRN (12:19)
[2022-06-18] MEDS ORDERED: ALPRAZolam 1 MG TAB PO PRN (12:19)
[2022-06-18] MEDS ORDERED: BUPRENORPHINE HCL 150 MCG BC PRN (12:21)
[2022-06-18] MEDS ORDERED: Fentanyl 250 MCG/5 ML VIAL ONE (12:21)
[2022-06-18] MEDS ORDERED: tiZANidine HCl 4 MG TAB ONE (12:30)
[2022-06-18] MEDS ORDERED: Ketorolac Tromethamine 30 MG/ML VIAL ONE (12:31)
[2022-06-18] MEDS ORDERED: Meperidine HCl/PF 25 MG/ML VIAL ONE (12:31)
[2022-06-18] MEDS ORDERED: Promethazine HCl 25 MG/ML VIAL ONE (13:16)
[2022-06-18] MEDS ORDERED: oxyCODONE 5 MG TAB ONE (15:48)
[2022-06-18] MEDS: CEFAZOLIN 2 GM in Sodium Chloride 0.9% 100 ML IVPB SCH (15:52)
[2022-06-18] MEDS: oxyCODONE 5 MG TAB PO PRN ×2 (15:52→20:13)
[2022-06-18 17:16] VITALS: BMI 30.8
[2022-06-18] MEDS: Sodium Chloride 0.9% 1,000 ML IV SCH (17:39)
[2022-06-18] MEDS: DULoxetine 60 MG CAP PO SCH (20:14)
[2022-06-18] MEDS: cloNIDine 0.2 MG TAB PO SCH (20:14)
[2022-06-18] MEDS: Pregabalin 75 MG CAP PO SCH (20:15)
[2022-06-18] MEDS: tiZANidine HCl 4 MG TAB PO PRN (20:18)
[2022-06-18] MEDS ORDERED: Aripiprazole 2 MG TAB PO SCH (21:00)
[2022-06-19] MEDS: CEFAZOLIN 2 GM in Sodium Chloride 0.9% 100 ML IVPB SCH ×2 (00:22→08:41)
[2022-06-19] MEDS: oxyCODONE 5 MG TAB PO PRN ×3 (00:23→13:30)
[2022-06-19] MEDS: Sodium Chloride 0.9% 1,000 ML IV SCH (02:50)
[2022-06-19] MEDS: tiZANidine HCl 4 MG TAB PO PRN ×2 (04:46→11:54)
[2022-06-19] MEDS: Pregabalin 75 MG CAP PO SCH (08:40)
[2022-06-19] MEDS: cloNIDine 0.2 MG TAB PO SCH (08:41)
[2022-06-19] MEDS: DULoxetine 60 MG CAP PO SCH (08:41)
[2022-06-19] MEDS ORDERED: BUPRENORPHINE HCL 150 MCG PO SCH (09:00)
[2022-06-19] MEDS ORDERED: BUPRENORPHINE HCL 150 MCG BC SCH (09:00)
[2022-06-19] MEDS ORDERED: CeleCOXIB 100 MG CAP PO SCH (09:00)
[2022-06-19 13:38] VITALS: BP 134/92; TEMP 98.1
== END 2022-06-19 14:00 | disposition home or self-care (01) ==
LOC: SDC 08:31 → T4-B 16:40
PROVIDERS: ADMIT Surgery; ATTEND Surgery
PROC: 0RG20A0 Fusion of 2 or more Cervical Vertebral Joints with Interbody Fusion Device, Anterior Approach, Anterior Column, Open Approach (ICD-10-PCS; principal; 2022-06-18)
DX: M48.02 Spinal stenosis, cervical region (principal); M50.123 Cervical disc disorder at C6-C7 level with radiculopathy; Z79.899 Other long term (current) drug therapy; Z88.5 Allergy status to narcotic agent; Z20.822 Contact with and (suspected) exposure to COVID-19
CPT/HCPCS: 96374; 96375; 96376; C1713; G0378; J1100; J1170; J1885; J2175; J2250; J2272; J2405; J2550; J2704; J2765; J3010; J3490; J7050; U0002

== ENCOUNTER 2022-07-27 08:56 | Outpatient (CLI) | payer BC, MEDICARE | END 2022-07-27 08:57 | disposition home or self-care (01) | LOC: BICRAD 08:56 | PROVIDERS: ATTEND Physician Assistant | DX: M50.30 Other cervical disc degeneration, unspecified cervical region (principal); M47.812 Spondylosis without myelopathy or radiculopathy, cervical region | CPT/HCPCS: 72040 ==

== ENCOUNTER 2022-11-30 16:24 | Emergency (ER) | payer BC, MEDICARE ==
[2022-11-30] MEDS ORDERED: Ondansetron ODT 4 MG TAB ONE (17:33)
[2022-11-30] MEDS ORDERED: Morphine 4 MG/ML VIAL ONE ×2 (17:33→19:57)
[2022-11-30] MEDS ORDERED: Diazepam 5 MG TAB ONE (18:39)
== END 2022-11-30 20:03 | disposition home or self-care (01) ==
LOC: ERS 16:24
DX: S16.1XXA Strain of muscle, fascia and tendon at neck level, initial encounter (principal); S39.012A Strain of muscle, fascia and tendon of lower back, initial encounter; W18.30XA Fall on same level, unspecified, initial encounter
CPT/HCPCS: 70450; 72125; 72131; 96372; J2270; Q0162

== ENCOUNTER 2022-12-15 12:07 | Outpatient (CLI) | payer BC, MEDICARE ==
[2022-12-15 13:42] LABS: INR-International Normal Ratio 0.9; PTT 22.8 sec (22.0-33.0); Prothrombin Time 10.1 sec (9.5-12.1)
[2022-12-15 14:25] LABS: White Blood Cell (WBC) Count 19.6 10x3/uL (3.5-10.5)
[2022-12-15 14:26] LABS: Hematocrit 40.8 % (34.9-44.5); Hemoglobin 13.4 g/dL (12.0-15.5); Mean Corpuscular HGB CONC 32.8 g/dL (32.0-36.0); Mean Corpuscular Volume 88.3 fl (81.6-98.3); Mean Platelet Volume 10.7 fl (7.4-10.4); Platelet Count 315 10x3/uL (130-400); RBC Distribution Width 12.5 % (11.5-14.5); Red Blood Cell (RBC) Count 4.62 10x6/uL (3.90-5.03)
[2022-12-15 18:01] LABS: Anion Gap 16 mmol/L (10-20); BUN (Urea Nitrogen) 17 mg/dL (7.0-18.7); Calc. Creatinine Clearance 0 mL/min (70-130); Calcium 9.1 mg/dL (7.8-10.44); Carbon Dioxide 20 mmol/L (22-29); Chloride 107 mmol/L (98-107); Estimated GFR 109; Glucose 86 mg/dL (70-105); Sodium 139 mmol/L (136-145)
== END 2022-12-15 12:08 | disposition home or self-care (01) ==
LOC: LABBT 12:07
PROVIDERS: ATTEND Surgery
DX: Z01.818 Encounter for other preprocedural examination (principal); T85.192A Other mechanical complication of implanted electronic neurostimulator of spinal cord electrode (lead), initial encounter
CPT/HCPCS: 80048; 85025; 85027; 85610; 85730; 93005; 93010

== ENCOUNTER 2023-01-26 05:59 | Inpatient (IN) | payer BC, MEDICARE ==
[2023-01-21 14:16] VITALS: BMI 33.3
[2023-01-26] MEDS ORDERED: Vancomycin 1 GM VIAL ONE (06:32)
[2023-01-26] MEDS ORDERED: Thrombin 5000 UNITS/5 ML VIAL ONE (06:32)
[2023-01-26] MEDS ORDERED: Sodium Chloride 0.9% 100 ML ONE (07:23)
[2023-01-26] MEDS ORDERED: CEFAZOLIN 2 GM VIAL ONE (07:23)
[2023-01-26] MEDS ORDERED: Midazolam HCl 2 mg/2 ml Vial ONE (07:58)
[2023-01-26] MEDS ORDERED: PROPOFOL 200 MG/20 ML VIAL ONE (08:02)
[2023-01-26] MEDS ORDERED: Ketorolac Tromethamine 30 MG/ML VIAL ONE (08:02)
[2023-01-26] MEDS ORDERED: ePHEDrine Sulfate 50 MG/10 ML VIAL ONE (08:02)
[2023-01-26] MEDS ORDERED: Ondansetron PF 4 MG/2 ML Vial ONE (08:02)
[2023-01-26] MEDS ORDERED: Lidocaine 1% PF 5 ML VIAL ONE (08:02)
[2023-01-26] MEDS ORDERED: PHENYLEPHRINE-NS 100 MCG/ML 10 ML SYRINGE ONE ×2 (08:02→09:36)
[2023-01-26] MEDS ORDERED: Rocuronium Bromide 10 MG/ML (10ML VIAL) ONE (08:02)
[2023-01-26] MEDS ORDERED: Dexamethasone 20 MG/5 ML VIAL ONE (08:02)
[2023-01-26] MEDS ORDERED: fentaNYL PF 100 MCG/2 ML SYRINGE ONE (08:24)
[2023-01-26] MEDS ORDERED: EPINEPHrine 1 MG/ML AMP ONE (08:44)
[2023-01-26] MEDS ORDERED: Bupivacaine PF 0.5% 30 ML VIAL ONE (08:44)
[2023-01-26] MEDS ORDERED: SUGAMMADEX SODIUM 200 MG/2 ML VIAL ONE (09:10)
[2023-01-26] MEDS ORDERED: Rocuronium Bromide 50 MG/5 ML VIAL ONE (09:10)
[2023-01-26] MEDS ORDERED: fentaNYL 50 mcg/mL 1 mL Vial ONE ×6 (09:10→16:14)
[2023-01-26] MEDS ORDERED: Phenylephrine 10 MG/ML VIAL ONE (09:36)
[2023-01-26] MEDS ORDERED: HYDROmorphone 0.5 MG/0.5 ML SYRINGE ONE ×4 (11:37→12:47)
[2023-01-26] MEDS ORDERED: Ondansetron PF 4 MG/2 ML Vial IVP PRN ×2 (15:22→15:50)
[2023-01-26] MEDS ORDERED: Acetaminophen 325 MG TAB PO PRN (15:22)
[2023-01-26] MEDS ORDERED: diphenhydrAMINE 25 MG CAP PO PRN ×2 (15:22→15:50)
[2023-01-26] MEDS ORDERED: Promethazine HCl 25 MG/ML VIAL IVPB PRN (15:22)
[2023-01-26] MEDS ORDERED: Diazepam 5 MG TAB PO PRN (15:26)
[2023-01-26] MEDS ORDERED: ALPRAZolam 1 MG TAB PO PRN (15:29)
[2023-01-26] MEDS ORDERED: CEFAZOLIN 2 GM in Sodium Chloride 0.9% 100 ML IVPB SCH (15:30)
[2023-01-26] MEDS ORDERED: cloNIDine 0.2 MG TAB PO PRN (15:32)
[2023-01-26] MEDS ORDERED: diphenhydrAMINE 50 MG/ML VIAL IVP PRN (15:50)
[2023-01-26] MEDS ORDERED: Naloxone HCl 0.4 mg/ml Vial IV PRN (15:50)
[2023-01-26] MEDS ORDERED: Promethazine HCl 25 MG/ML VIAL IM PRN (15:50)
[2023-01-26] MEDS ORDERED: diphenhydrAMINE 50 MG/ML VIAL IM PRN (15:50)
[2023-01-26] MEDS ORDERED: Fentanyl CADD 100 ML IV PRN (15:50)
[2023-01-26] MEDS ORDERED: Communication Order-Pharmacy FS SCH (16:00)
[2023-01-26] MEDS: Sodium Chloride 0.9% 1,000 ML IV SCH (18:15)
[2023-01-26] MEDS: DULoxetine 60 MG CAP PO SCH (21:04)
[2023-01-26] MEDS: tiZANidine HCl 4 MG TAB PO PRN (21:04)
[2023-01-26] MEDS: Aripiprazole 10 MG TAB PO SCH (21:04)
[2023-01-27] MEDS: CEFAZOLIN 2 GM in Sodium Chloride 0.9% 100 ML IVPB SCH ×2 (02:25→09:36)
[2023-01-27] MEDS: tiZANidine HCl 4 MG TAB PO PRN (06:07)
[2023-01-27] MEDS ORDERED: Diazepam 5 MG TAB PO SCH (08:30)
[2023-01-27] MEDS ORDERED: Dexamethasone 10 MG/ML VIAL SLOW IVP SCH (08:30)
[2023-01-27] MEDS ORDERED: HYDROcodone/Acetaminophen 5/325 mg Tablet PO PRN (08:54)
[2023-01-27] MEDS ORDERED: Magnesium Citrate 300 ML BOT PO PRN (08:56)
[2023-01-27] MEDS ORDERED: Milk Of Magnesia 30 ML UDCUP PO PRN (08:56)
[2023-01-27] MEDS ORDERED: Bisacodyl 10 MG SUPP PR PRN (08:56)
[2023-01-27] MEDS: DULoxetine 60 MG CAP PO SCH ×2 (09:24→22:00)
[2023-01-27] MEDS: Docusate 100 MG CAP PO SCH ×2 (09:24→22:02)
[2023-01-27 09:29] LABS: Troponin I Less than 0.010 ng/mL (< 0.028)
[2023-01-27] MEDS: Morphine 4 MG/ML VIAL SLOW IVP PRN ×2 (09:29→22:11)
[2023-01-27] MEDS: HYDROcodone/Acetaminophen 10/325 mg Tablet PO PRN ×2 (10:50→14:43)
[2023-01-27] MEDS: CeleCOXIB 100 MG CAP PO SCH (12:35)
[2023-01-27] MEDS ORDERED: Polyethylene Glycol 3350 17 GM Packet PO PRN (14:35)
[2023-01-27] MEDS: Dexamethasone 4 MG TAB PO SCH ×2 (15:46→22:02)
[2023-01-27] MEDS ORDERED: Diazepam 5 MG TAB PO PRN (16:00)
[2023-01-27] MEDS ORDERED: tiZANidine HCl 4 MG TAB PO SCH (21:00)
[2023-01-27] MEDS: Sodium Chloride 0.9% 1,000 ML IV SCH ×2 (21:59→22:00)
[2023-01-27] MEDS: Aripiprazole 10 MG TAB PO SCH (22:00)
[2023-01-28] MEDS: Dexamethasone 4 MG TAB PO SCH ×2 (03:20→09:32)
[2023-01-28] MEDS: HYDROcodone/Acetaminophen 10/325 mg Tablet PO PRN (07:48)
[2023-01-28] MEDS: Docusate 100 MG CAP PO SCH (07:48)
[2023-01-28] MEDS: DULoxetine 60 MG CAP PO SCH (07:48)
[2023-01-28] MEDS ORDERED: tiZANidine HCl 4 MG TAB PO SCH (09:00)
[2023-01-28 09:10] VITALS: BP 151/84; TEMP 97.8
[2023-01-28] MEDS: CeleCOXIB 100 MG CAP PO SCH (09:28)
[2023-01-28] MEDS: Sodium Chloride 0.9% 1,000 ML IV SCH (09:37)
[2023-01-29] MEDS ORDERED: FLU VACC QS2023-24(6MOS UP)/PF 60 MCG/0.5 ML SYRINGE IM ONE (09:00)
== END 2023-01-28 13:05 | disposition home or self-care (01) | DRG 29 ==
LOC: SDC 05:59 → SURG A 15:22 → OBSVTOIN 01-27 15:15
PROVIDERS: ADMIT Surgery; ATTEND Surgery
PROC: 00HU0MZ Insertion of Neurostimulator Lead into Spinal Canal, Open Approach (ICD-10-PCS; principal; 2023-01-26)
PROC: 0JH70MZ Insertion of Stimulator Generator into Back Subcutaneous Tissue and Fascia, Open Approach (ICD-10-PCS; 2023-01-26)
PROC: 00PU0MZ Removal of Neurostimulator Lead from Spinal Canal, Open Approach (ICD-10-PCS; 2023-01-26)
PROC: 01N80ZZ Release Thoracic Nerve, Open Approach (ICD-10-PCS; 2023-01-26)
PROC: 0JPT0MZ Removal of Stimulator Generator from Trunk Subcutaneous Tissue and Fascia, Open Approach (ICD-10-PCS; 2023-01-26)
DX: G89.4 Chronic pain syndrome (principal); G81.90 Hemiplegia, unspecified affecting unspecified side; M96.1 Postlaminectomy syndrome, not elsewhere classified; M47.22 Other spondylosis with radiculopathy, cervical region
CPT/HCPCS: 36415; 72020; 84484; 93005; 93010; 96374; 96375; 96376; C1778; G0378; J0171; J1100; J1170; J1200; J1885; J2250; J2270; J2370; J2405; J2704; J3010; J3370; J3490; J8540; S0020

== ENCOUNTER 2024-04-05 15:51 | Outpatient (CLI) | payer BC, MEDICARE | END 2024-04-05 15:52 | disposition home or self-care (01) | LOC: BICCT 15:51 | PROVIDERS: ATTEND Specialist | DX: M96.1 Postlaminectomy syndrome, not elsewhere classified (principal); Z98.890 Other specified postprocedural states | CPT/HCPCS: 72131 ==